=== PATIENT | male | born 1990 ===

== ENCOUNTER 2021-12-11 08:28 | Outpatient (CLI) | payer BC, SELFPAY ==
[2021-12-11 18:49] LABS: SARS-CoV-2 RNA PCR Negative (Negative)
== END 2021-12-11 08:29 | disposition home or self-care (01) ==
PROVIDERS: Visit Provider Nurse Practitioner Family
DX: Z20.822 Contact with and (suspected) exposure to COVID-19 (principal)
CPT/HCPCS: C9803; U0003; U0005

== ENCOUNTER 2022-06-18 17:50 | Outpatient (CLI) | payer BC, SELFPAY ==
[2022-06-18 18:42] LABS: SARS-CoV-2 RNA PCR Negative (Negative)
== END 2022-06-18 17:51 | disposition home or self-care (01) ==
PROVIDERS: PCP Nurse Practitioner Family; Visit Provider Nurse Practitioner Family
DX: Z20.822 Contact with and (suspected) exposure to COVID-19 (principal)
CPT/HCPCS: U0003; U0005